=== PATIENT | female | born 1975 | race Caucasian/White ===

== ENCOUNTER 2023-10-09 08:53 | Emergency (ER) | payer OTHER ==
[~2023-10-09] VITALS: Ht 154.9 cm; Wt 65.8 kg
[2023-10-09 09:15] VITALS: BP 98/70; PULSE 104; RESP 16; TEMP 99.7; O2SAT 99
[2023-10-09 10:25] LABS: BASOPHILS % (AUTO) 0.1 % (0.0-2.0); LYMPHOCYTES # (AUTO) 0.7 K/uL (2.5-16.5); LYMPHOCYTES % (AUTO) 4.6 % (20.5-51.1); MEAN CORPUSCULAR HEMOGLOBIN 30 pg (27-31); MEAN CORPUSCULAR HGB CONC 34 g/dL (33-37); MEAN CORPUSCULAR VOLUME 86.5 fL (80-94); MONOCYTES # (AUTO) 1.1 K/uL (0.8-1.0); MONOCYTES % (AUTO) 7.7 % (1.7-9.3); NEUTROPHILS % (AUTO) 87.6 % (42.2-75.2); PLATELET COUNT (AUTO) 143 K/uL (140-450); RED CELL DISTRIBUTION WIDTH 13.6 % (11.6-13.7); WHITE BLOOD COUNT (AUTO) 14.9 K/uL (4.8-10.8)
[2023-10-09] MEDS: NACL 0.9% 1,000 ML IV ONE (10:27)
[2023-10-09] MEDS: ACETAMINOPHEN EXTRA STRENGTH 500 MG TAB PO ONE (10:37)
[2023-10-09] MEDS: ONDANSETRON 4 MG/2 ML VIAL IVP ONE (10:42)
[2023-10-09] MEDS: KETOROLAC 30 MG/ML VIAL IVP ONE (10:42)
[2023-10-09 10:43] LABS: FLU A ANTIGEN negative (NEGATIVE); FLU B ANTIGEN negative (NEGATIVE)
[2023-10-09 10:50] LABS: ALANINE AMINOTRANSFERASE 20 U/L (12-78); ALKALINE PHOSPHATASE 82 U/L (50-136); ANION GAP 13.5 (8-16); ASPARTATE AMINOTRANSFERASE 16 U/L (15-37); CALCIUM 8.7 mg/dL (8.5-10.1); CARBON DIOXIDE 26.7 mmol/L (21-32); CHLORIDE 99 mmol/L (98-107); GFR ARICAN-AMERICAN 76 mL/min (>90); GFR NON ARICAN-AMERICAN 63 mL/min (>90); GLUCOSE 143 mg/dL (74-106); LIPASE 44 U/L (16-77); POTASSIUM 3.2 mmol/L (3.5-5.1); SODIUM SERUM 136 mmol/L (136-145); TOTAL BILIRUBIN 0.3 mg/dL (0.0-1.0); TOTAL PROTEIN, SERUM 7.2 g/dL (6.4-8.2); UREA NITROGEN, BLOOD 7 mg/dL (7-18)
[2023-10-09 12:08] LABS: APPEARANCE,URINE CLEAR (CLEAR); BILIRUBIN,URINE NEGATIVE (NEGATIVE); BLOOD, URINE 1+ (NEGATIVE); COLOR,URINE YELLOW (YELLOW); LEUKOCYTE ESTERASE ,URINE NEGATIVE (NEGATIVE); NITRITE, URINE NEGATIVE (NEGATIVE); PH,URINE 8.5 (5.0-9.0); PROTEIN,URINE 1+ (NEGATIVE); UGLUCOSE NEGATIVE (NEGATIVE); UROBILINOGEN,URINE 0.2 EU/dL (0.2 - 1)
[2023-10-09 12:29] LABS: BACTERIA,URINE 1+ /HPF (None Seen); RBC,URINE 11-20 (MOD) /HPF (0-5); SQUAMOUS EPITHELIAL CELL,UR 0-3 (FEW) /LPF (0-3 (FEW))
[2023-10-09] MEDS ORDERED: cefTRIAXone 1,000 MG VIAL ONE (13:03)
[2023-10-09] MEDS ORDERED: CEPH-588 PO (14:25)
[2023-10-09] MEDS ORDERED: IBUP-2213 PO (14:25)
[2023-10-09] MEDS ORDERED: ONDA-188 SL (14:25)
[2023-10-09] MEDS: MORPHINE SULFATE 4 MG/ML SYR IVP ONE (14:46)
[2023-10-09 15:10] VITALS: BP 99/60; PULSE 87; RESP 20; TEMP 99.5; O2SAT 98
== END 2023-10-09 15:10 | disposition home or self-care (01) ==
LOC: MED 08:53
DX: N39.0 Urinary tract infection, site not specified (principal); E86.0 Dehydration; R11.2 Nausea with vomiting, unspecified; R19.7 Diarrhea, unspecified; R50.9 Fever, unspecified; Z20.822 Contact with and (suspected) exposure to COVID-19; Z90.49 Acquired absence of other specified parts of digestive tract; Z79.1 Long term (current) use of non-steroidal anti-inflammatories (NSAID); Z79.899 Other long term (current) drug therapy; Z88.8 Allergy status to other drugs, medicaments and biological substances
CPT/HCPCS: 36415; 80053; 81001; 83690; 84484; 85025; 87040; 87086; 87426; 87804; 93005; 96361; 96365; 96375; 99284; J0696; J1885; J2270; J2405; J7030